=== PATIENT | male | born 1995 | race African-American/Black ===

== ENCOUNTER 2020-02-02 17:54 | Emergency (ER) | payer MEDICAID ==
[~2020-02-02] VITALS: Ht 172.7 cm; Wt 71.0 kg
[2020-02-02 18:08] VITALS: BP 128/79
[2020-02-02 20:01] LABS: CLARITY URINE CLEAR (CLEAR); COLOR URINE YELLOW (YELLOW); KETONES URINE NEGATIVE (NEGATIVE); LEUKOCYTE ESTERASE URINE TRACE (NEGATIVE); NITRITE URINE NEGATIVE (NEGATIVE); OCCULT BLOOD URINE NEGATIVE (NEGATIVE); PROTEIN URINE NEGATIVE (NEGATIVE); SPECIFIC GRAVITY URINE 1.016 (1.005-1.030)
[2020-02-02 20:12] LABS: *AMPHETAMINES SCREEN URINE NEGATIVE (NEGATIVE); *BARBITURATES SCREEN URINE NEGATIVE (NEGATIVE); *BENZODIAZEPINES SCREEN URINE NEGATIVE (NEGATIVE); *COCAINE SCREEN URINE NEGATIVE (NEGATIVE); METHADONE URINE SCREEN NEGATIVE (NEGATIVE); OPIATES URINE SCREEN NEGATIVE (NEGATIVE)
[2020-02-02 20:13] LABS: CANNABINOID URINE SCREEN NEGATIVE (NEGATIVE); PHENCYCLIDINE URINE SCREEN NEGATIVE (NEGATIVE)
[2020-02-02 20:27] LABS: BASOPHILS % 0.4 % (0.0-2.0); EOSINOPHILS % 0.9 % (0.0-5.0); HEMATOCRIT. 47.7 % (42.0-52.0); HEMOGLOBIN. 16.2 g/dL (14.0-18.0); LYMPHOCYTES % 42.4 % (20.0-50.0); MEAN CORPUSCULAR HEMOGLOBIN 29.1 pg (28.0-32.0); MEAN CORPUSCULAR VOLUME 85.7 fL (80.0-94.0); MEAN PLATELET VOLUME 7.6 fl (7.4-10.4); MONOCYTES % 6.4 % (2.0-8.0); NEUTROPHILS % 49.9 % (40.0-76.0); PLATELET 319 x1000/uL (130-400); RED BLOOD CELL COUNT 5.57 mill/uL (4.7-6.1); RED CELL DISTRIBUTION WIDTH 13.8 % (11.6-14.6)
[2020-02-02 20:31] LABS: CHLORIDE 104 mEq/L (98-107)
[2020-02-02 20:34] LABS: ETHANOL BLOOD < 10 mg/dL
== END 2020-02-03 03:04 | disposition home or self-care (01) ==
LOC: ER 17:54
DX: R07.89 Other chest pain (principal)
CPT/HCPCS: 36415; 71045; 80053; 80305; 80320; 81003; 83880; 84484; 85025; 85379; 93005; 99285; G0480

== ENCOUNTER 2020-04-08 03:31 | Emergency (ER) | payer BC, MEDICAID ==
[~2020-04-08] VITALS: Ht 172.7 cm; Wt 70.9 kg
[2020-04-08 03:35] VITALS: BP 120/80
[2020-04-08] MEDS ORDERED: ALBUTEROL 6.7GM HFA INHALER ORI ONE (04:00)
== END 2020-04-08 04:47 | disposition home or self-care (01) ==
LOC: ER 03:31
DX: J06.9 Acute upper respiratory infection, unspecified (principal)
CPT/HCPCS: 99283

== ENCOUNTER 2020-04-28 09:54 | Emergency (ER) | payer MEDICAID ==
[~2020-04-28] VITALS: Ht 172.7 cm; Wt 70.0 kg
[2020-04-28 10:12] VITALS: BP 123/75
== END 2020-04-28 11:06 | disposition home or self-care (01) ==
LOC: ER 09:54
DX: J45.909 Unspecified asthma, uncomplicated (principal)
CPT/HCPCS: 99283

== ENCOUNTER 2020-07-07 15:22 | Emergency (ER) | payer MEDICAID ==
[~2020-07-07] VITALS: Ht 172.7 cm; Wt 75.9 kg
[2020-07-07 15:54] VITALS: BP 130/73
== END 2020-07-07 16:49 | disposition home or self-care (01) ==
LOC: ER 15:22
DX: J40 Bronchitis, not specified as acute or chronic (principal)
CPT/HCPCS: 71045; 99283

== ENCOUNTER 2020-10-02 15:58 | Emergency (ER) | payer MEDICAID ==
[~2020-10-02] VITALS: Ht 175.3 cm; Wt 75.0 kg
[2020-10-02] MEDS ORDERED: IBUPROFEN 600MG TABLET PO ONE (18:15)
[2020-10-02 20:57] VITALS: BP 125/75
== END 2020-10-02 21:48 | disposition home or self-care (01) ==
LOC: ER 15:58
DX: R07.89 Other chest pain (principal); R51.9 Headache, unspecified; Z20.828 Contact with and (suspected) exposure to other viral communicable diseases
CPT/HCPCS: 71045; 93005; 99285; C9803; U0003; 99283

== ENCOUNTER 2021-03-12 19:29 | Emergency (ER) | payer MEDICAID ==
[~2021-03-12] VITALS: Ht 172.7 cm; Wt 71.0 kg
[2021-03-12 21:05] LABS: BASOPHILS % 0.4 % (0.0-2.0); EOSINOPHILS % 1.4 % (0.0-5.0); HEMATOCRIT. 46.9 % (42.0-52.0); HEMOGLOBIN. 15.9 g/dL (14.0-18.0); LYMPHOCYTES % 41.1 % (20.0-50.0); MEAN CORPUSCULAR HEMOGLOBIN 28.7 pg (28.0-32.0); MEAN CORPUSCULAR VOLUME 85.1 fL (80.0-94.0); MEAN PLATELET VOLUME 7.1 fl (7.4-10.4); MONOCYTES % 8.4 % (2.0-8.0); NEUTROPHILS % 48.7 % (40.0-76.0); PLATELET 307 x1000/uL (130-400); RED BLOOD CELL COUNT 5.51 mill/uL (4.7-6.1)
[2021-03-12 21:10] LABS: CHLORIDE 103 mEq/L (98-107)
[2021-03-12 21:15] LABS: CLARITY URINE CLEAR (CLEAR); COLOR URINE YELLOW (YELLOW); KETONES URINE NEGATIVE (NEGATIVE); LEUKOCYTE ESTERASE URINE NEGATIVE (NEGATIVE); NITRITE URINE NEGATIVE (NEGATIVE); OCCULT BLOOD URINE NEGATIVE (NEGATIVE); PROTEIN URINE NEGATIVE (NEGATIVE); SPECIFIC GRAVITY URINE 1.017 (1.005-1.030)
[2021-03-12 21:38] LABS: *AMPHETAMINES SCREEN URINE NEGATIVE (NEGATIVE); *BARBITURATES SCREEN URINE NEGATIVE (NEGATIVE); *BENZODIAZEPINES SCREEN URINE NEGATIVE (NEGATIVE); *COCAINE SCREEN URINE NEGATIVE (NEGATIVE)
[2021-03-12 21:39] LABS: CANNABINOID URINE SCREEN NEGATIVE (NEGATIVE); METHADONE URINE SCREEN NEGATIVE (NEGATIVE); OPIATES URINE SCREEN NEGATIVE (NEGATIVE); PHENCYCLIDINE URINE SCREEN NEGATIVE (NEGATIVE)
[2021-03-12 23:50] VITALS: BP 116/74
== END 2021-03-12 23:50 | disposition home or self-care (01) ==
LOC: ER 19:29
DX: S33.5XXA Sprain of ligaments of lumbar spine, initial encounter (principal); X58.XXXA Exposure to other specified factors, initial encounter; Y93.89 Activity, other specified; Y92.89 Other specified places as the place of occurrence of the external cause; Y99.8 Other external cause status
CPT/HCPCS: 36415; 80053; 80305; 81003; 85025; 99283

== ENCOUNTER 2021-10-10 13:54 | Emergency (ER) | payer BC, MEDICAID ==
[~2021-10-10] VITALS: Ht 172.7 cm; Wt 73.0 kg
[2021-10-10 14:25] VITALS: BP 114/75
== END 2021-10-10 15:31 | disposition home or self-care (01) ==
LOC: ER 13:54
DX: R51.9 Headache, unspecified (principal); R42 Dizziness and giddiness; R05.9 Cough, unspecified; Z20.822 Contact with and (suspected) exposure to COVID-19
CPT/HCPCS: 99283; C9803; U0003; U0005

== ENCOUNTER 2021-10-14 23:30 | Emergency (ER) | payer MEDICAID ==
[~2021-10-14] VITALS: Ht 175.3 cm; Wt 71.0 kg
[2021-10-14 23:40] VITALS: BP 126/71
[2021-10-15] MEDS ORDERED: GUAI-741 MT (00:01)
[2021-10-16] MEDS ORDERED: ALBU6.7H9 INH (17:44)
== END 2021-10-15 01:01 | disposition home or self-care (01) ==
LOC: ER 23:30
DX: U07.1 COVID-19 (principal); R05.9 Cough, unspecified; Z87.01 Personal history of pneumonia (recurrent)
CPT/HCPCS: 99282

== ENCOUNTER 2021-11-05 00:17 | Emergency (ER) | payer MEDICAID ==
[~2021-11-05] VITALS: Ht 172.7 cm; Wt 74.0 kg
[~2021-11-05 00:17] MED LIST: ALBU6.7H9 INH; GUAI-741 MT
[2021-11-05 02:00] VITALS: BP 132/73
== END 2021-11-05 02:41 | disposition home or self-care (01) ==
LOC: ER 00:17
DX: R05.3 Chronic cough (principal); U09.9 Post COVID-19 condition, unspecified
CPT/HCPCS: 99281

== ENCOUNTER 2023-01-20 07:19 | Emergency (ER) | payer MEDICAID ==
[~2023-01-20] VITALS: Ht 172.7 cm; Wt 72.2 kg
[~2023-01-20 07:19] MED LIST changes: +ALBU6.7H3 INH; -ALBU6.7H9 INH
[2023-01-20 08:57] VITALS: BP 126/84
== END 2023-01-20 09:02 | disposition home or self-care (01) ==
LOC: ER 07:19
DX: J02.9 Acute pharyngitis, unspecified (principal)
CPT/HCPCS: 71045; 99283

== ENCOUNTER 2024-01-07 04:19 | Emergency (ER) | payer MEDICAID ==
[~2024-01-07] VITALS: Ht 172.7 cm; Wt 74.0 kg
[2024-01-07 04:56] VITALS: O2SAT 99
[2024-01-07 05:28] LABS: BASOPHILS % 0.7 % (0.0-2.0); EOSINOPHILS % 2.3 % (0.0-5.0); HEMATOCRIT. 47.1 % (42.0-52.0); HEMOGLOBIN. 15.9 g/dL (14.0-18.0); LYMPHOCYTES % 44.8 % (20.0-50.0); MEAN CORPUSCULAR HEMOGLOBIN 28.9 pg (28.0-32.0); MEAN CORPUSCULAR HGB CONC 33.7 g/dL (31.0-37.0); MEAN CORPUSCULAR VOLUME 85.8 fL (80.0-94.0); MEAN PLATELET VOLUME 7.2 fl (7.4-10.4); MONOCYTES % 6.9 % (2.0-8.0); NEUTROPHILS % 45.3 % (40.0-76.0); PLATELET 319 x1000/uL (130-400); RED BLOOD CELL COUNT 5.49 mill/uL (4.7-6.1); RED CELL DISTRIBUTION WIDTH 14.6 % (11.6-14.6); WHITE BLOOD COUNT 6.3 x1000/uL (4.5-11.0)
[2024-01-07 05:53] LABS: CLARITY URINE CLEAR (CLEAR); COLOR URINE YELLOW (YELLOW); GLUCOSE URINE NEGATIVE (NEGATIVE); KETONES URINE NEGATIVE (NEGATIVE); LEUKOCYTE ESTERASE URINE NEGATIVE (NEGATIVE); NITRITE URINE NEGATIVE (NEGATIVE); OCCULT BLOOD URINE NEGATIVE (NEGATIVE); PROTEIN URINE NEGATIVE (NEGATIVE); SPECIFIC GRAVITY URINE 1.019 (1.005-1.030); UROBILINOGEN URINE 0.2 E.U./dL (0.2-1.0)
[2024-01-07 05:56] LABS: ALANINE AMINOTRANSFERASE 27 IU/L (10-49); ALBUMIN 4.7 g/dL (3.2-4.8); ASPARTATE AMINOTRANSFERASE 29 IU/L (<34); BILIRUBIN TOTAL 0.4 mg/dL (0.1-1.0); CALCIUM 9.3 mg/dL (8.7-10.4); CARBON DIOXIDE 31 mEq/L (21-32); CHLORIDE 102 mEq/L (98-107); CREATININE 1.2 mg/dL (0.6-1.3); GLUCOSE 101 mg/dL (70-105); POTASSIUM 4.1 mEq/L (3.5-5.1); PROTEIN TOTAL 7.4 g/dL (6.0-8.3); SODIUM 138 mEq/L (136-145); TROPONIN I HIGH SENSITIVITY 4 ng/L (3.0-53); UREA NITROGEN BLOOD 12 mg/dL (9-23)
[2024-01-07] MEDS ORDERED: MECLIZINE 25MG TABLET PO ONE (09:45)
[2024-01-07] MEDS: MECLIZINE 12.5MG TABLET PO NR (12:08)
[2024-01-07] MEDS ORDERED: MECL-299 MT (12:13)
[2024-01-07 12:15] VITALS: BP 112/70; PULSE 67; RESP 16; TEMP 98.2
== END 2024-01-07 12:32 | disposition home or self-care (01) ==
LOC: ER 04:19
DX: R42 Dizziness and giddiness (principal)
CPT/HCPCS: 99285; 70450; 71045; 80053; 81003; 85025; 84484; 36415; 93005; J8597